=== PATIENT | male | born 1960 | race African-American/Black ===

== ENCOUNTER 2024-01-23 10:27 | Emergency (ER) | payer OTHER ==
[~2024-01-23] VITALS: Ht 172.7 cm; Wt 79.4 kg
[2024-01-23 10:32] VITALS: O2SAT 97
[2024-01-23] MEDS ORDERED: HYDRALAZINE HCL 50MG TABLET PO ONE (12:45)
[2024-01-23] MEDS: HYDRALAZINE HCL 25MG TABLET PO NR (13:15)
[2024-01-23 15:18] LABS: BASOPHILS % 0.9 % (0.0-2.0); EOSINOPHILS % 1.4 % (0.0-5.0); HEMATOCRIT. 50.8 % (42.0-52.0); HEMOGLOBIN. 16.7 g/dL (14.0-18.0); LYMPHOCYTES % 46.3 % (20.0-50.0); MEAN CORPUSCULAR HEMOGLOBIN 29.9 pg (28.0-32.0); MEAN CORPUSCULAR HGB CONC 32.9 g/dL (31.0-37.0); MEAN CORPUSCULAR VOLUME 90.8 fL (80.0-94.0); MEAN PLATELET VOLUME 8.2 fl (7.4-10.4); MONOCYTES % 6.1 % (2.0-8.0); NEUTROPHILS % 45.3 % (40.0-76.0); PLATELET 261 x1000/uL (130-400); RED BLOOD CELL COUNT 5.59 mill/uL (4.7-6.1); RED CELL DISTRIBUTION WIDTH 13.8 % (11.6-14.6); WHITE BLOOD COUNT 5.5 x1000/uL (4.5-11.0)
[2024-01-23 15:25] LABS: CHLORIDE 108 mEq/L (98-107); POTASSIUM 3.8 mEq/L (3.5-5.1); SODIUM 142 mEq/L (136-145)
[2024-01-23 15:29] LABS: CALCIUM 9.7 mg/dL (8.7-10.4)
[2024-01-23 15:32] LABS: CARBON DIOXIDE 26 mEq/L (21-32); TROPONIN I HIGH SENSITIVITY 4 ng/L (3.0-53)
[2024-01-23 15:33] LABS: TROPONIN I HIGH SENSITIVITY 4 ng/L (3.0-53)
[2024-01-23 15:34] LABS: GLUCOSE 97 mg/dL (70-105); UREA NITROGEN BLOOD 11 mg/dL (9-23)
[2024-01-23 15:35] LABS: ALBUMIN 4.5 g/dL (3.2-4.8)
[2024-01-23 15:36] LABS: ALANINE AMINOTRANSFERASE 19 IU/L (10-49); ASPARTATE AMINOTRANSFERASE 21 IU/L (<34); BILIRUBIN DIRECT 0.1 mg/dL (<=3.0); BILIRUBIN TOTAL 0.6 mg/dL (0.1-1.0); PROTEIN TOTAL 7.7 g/dL (6.0-8.3)
[2024-01-23 16:30] VITALS: BP 214/118; PULSE 76; RESP 16; TEMP 36.66960; O2SAT 100
== END 2024-01-23 16:15 | disposition home or self-care (01) ==
LOC: ER 10:27
DX: I10 Essential (primary) hypertension (principal); Z91.199 Patient's noncompliance with other medical treatment and regimen due to unspecified reason
CPT/HCPCS: 36415; 71045; 80048; 80076; 84484; 85025; 93005; 99285